=== PATIENT | female | born 1970 | race Hispanic/Latino ===

== ENCOUNTER 2017-08-11 09:25 | Emergency (ER) | payer BC, OTHER ==
[~2017-08-11] VITALS: Ht 167.6 cm; Wt 93.0 kg
[2017-08-11 09:52] LABS: BASOPHILS % (AUTO) 0.7 % (0.0-5.0); EOSINOPHILS % (AUTO) 3.3 % (0.0-8.0); HEMATOCRIT 27.8 % (36-48); LYMPHOCYTES % (AUTO) 27.1 % (21.0-51.0); MEAN CORPUSCULAR HEMOGLOBIN 25.7 pg (27.0-33.0); MEAN CORPUSCULAR HGB CONC 32.1 g/dL (32.0-36.0); MEAN CORPUSCULAR VOLUME 79.9 fL (79-99); MONOCYTES % (AUTO) 6.4 % (3.0-13.0); NEUTROPHILS % (AUTO) 62.5 % (40.0-77.0); PLATELET COUNT (AUTO) 315 K/uL (130-400); RED BLOOD CELL COUNT(AUTO) 3.48 MIL/uL (4.00-5.50); RED CELL DISTRIBUTION WIDTH 14.9 % (11.0-15.5); WHITE BLOOD COUNT (AUTO) 6.6 K/uL (4.8-10.8)
[2017-08-11 09:56] LABS: APPEARANCE,URINE Clear (CLEAR); BILIRUBIN,URINE Negative (NEGATIVE); COLOR,URINE Yellow (YELLOW); GLUCOSE, URINE (UA) Negative (NEGATIVE); KETONES,URINE Negative (NEGATIVE); LEUKOCYTE ESTERASE ,URINE Negative (NEGATIVE); NITRATE,URINE Negative (NEGATIVE); OCCULT BLOOD,URINE Negative (NEGATIVE); PH,URINE 5.5 (5.0-8.0); PROTEIN,URINE Negative (NEGATIVE)
[2017-08-11 09:58] LABS: HCG,QUAL RESULT NEGATIVE (NEGATIVE)
[2017-08-11 09:59] LABS: CREATININE 0.8 mg/dL (0.5-1.5); POTASSIUM 3.8 mmol/L (3.5-5.1)
[2017-08-11] MEDS ORDERED: KETOROLAC TROMETHAMINE 30MG/ML ONE (10:24)
[2017-08-11] MEDS ORDERED: ONDANSETRON HCL 4 MG/2 ML VIAL ONE (10:24)
[2017-08-11] MEDS ORDERED: SODIUM CHLORIDE 0.9% 1000ML 1,000 ML IV ONE (10:25)
[2017-08-11] MEDS ORDERED: ESTROGENS,CONJUGATED 25 MG/VIAL IVP SCH (11:31)
== END 2017-08-11 12:31 | disposition home or self-care (01) ==
LOC: EDH 09:25
DX: D64.9 Anemia, unspecified (principal); N93.9 Abnormal uterine and vaginal bleeding, unspecified; Z98.890 Other specified postprocedural states
CPT/HCPCS: 36415; 76830; 80048; 81003; 81025; 85025; 96361; 96374; 96375; 99285; J1410; J2405; J1885; J7030

== ENCOUNTER 2017-08-13 07:35 | Day surgery (SDC) | payer OTHER ==
[2017-08-12 16:28] VITALS: BP 134/79
[2017-08-12 16:44] LABS: BASOPHILS % (AUTO) 0.6 % (0.0-5.0); EOSINOPHILS % (AUTO) 2.6 % (0.0-8.0); HEMATOCRIT 25.3 % (36-48); LYMPHOCYTES % (AUTO) 29.3 % (21.0-51.0); MEAN CORPUSCULAR HGB CONC 34.1 g/dL (32.0-36.0); MEAN CORPUSCULAR VOLUME 79.1 fL (79-99); MONOCYTES % (AUTO) 6.9 % (3.0-13.0); NEUTROPHILS % (AUTO) 60.6 % (40.0-77.0); PLATELET COUNT (AUTO) 293 K/uL (130-400); RED CELL DISTRIBUTION WIDTH 14.6 % (11.0-15.5); WHITE BLOOD COUNT (AUTO) 8.1 K/uL (4.8-10.8)
[2017-08-13] VITALS (16 sets, daily range): BP systolic 95–127; BP diastolic 54–82
[~2017-08-13] VITALS: Ht 165.1 cm; Wt 99.3 kg
[2017-08-13] MEDS ORDERED: LACTATED RINGERS 1000ML 1,000 ML IV SCH (08:00)
[2017-08-13] MEDS ORDERED: ONDANSETRON HCL 4 MG/2 ML VIAL ONE (09:56)
[2017-08-13] MEDS ORDERED: FENTANYL CITRATE PF 50 MCG/1 ML 2ML VIAL ONE (09:57)
[2017-08-13] MEDS ORDERED: LIDOCAINE PF 2% 5ML ABBOJECT ONE (09:57)
[2017-08-13] MEDS ORDERED: DEXAMETHASONE SOD PHOSPHATE 10MG/ML 1ML VIAL ONE (09:57)
[2017-08-13] MEDS ORDERED: MIDAZOLAM HCL 1 MG/ML 2ML VIAL ONE (09:57)
[2017-08-13] MEDS ORDERED: PROPOFOL 10 MG/ML 20ML VIAL IV ONE (09:57)
[2017-08-13] MEDS ORDERED: MEPERIDINE-PF 50 MG/ML SYG ONE (11:09)
== END 2017-08-13 12:50 | disposition home or self-care (01) ==
LOC: SUH 07:35 → DAH 07:35 → SUH 12:50
PROVIDERS: ATTEND Specialist
DX: N85.8 Other specified noninflammatory disorders of uterus (principal); D64.9 Anemia, unspecified; Z80.41 Family history of malignant neoplasm of ovary; E66.9 Obesity, unspecified; Z98.890 Other specified postprocedural states
CPT/HCPCS: 36415; 58120; 84703; 85025; 86850; 86900; 86901; 88305; A4351; J1100; J2001; J2175; J2250; J2405; J2704; J3010; J7120

== ENCOUNTER 2025-04-11 17:10 | Emergency (ER) | payer BC, OTHER ==
[~2025-04-11] VITALS: Ht 167.6 cm; Wt 113.4 kg
--- NOTE | 2025-04-11 17:27 | ERN ---
General Chief Complaint: Headache Stated Complaint: LEFT FACIAL NUMBNESS, HEADACHE, RT LEG PAIN Time Seen by MD: 17:17 Time Seen by Midlevel: 17:17 Source: patient History of Present Illness Initial Comments 55-year-old female with a past medical history of PTSD on buspirone 5 mg presenting to the emergency department for evaluation of right-sided facial n umbness with associated right-sided facial pain. She reports a right-sided headache that has been intermittent in nature for one week. She was seen at [facility] earlier today where she was given Toradol and diagnosed with an acute headache. She saw her primary care doctor earlier this week for the same condition and was sent to the ER for a CT scan. Allergies: Coded Allergies: No Known Drug Allergies (Verified Allergy, Unknown, 08/11/17) codeine (Unverified Allergy, Unknown, 04/11/25) Home Meds No Active Prescriptions or Reported Meds Past Medical History Past Medical History: Anxiety Medical History Other: PTSD Past Surgical History: Hysterectomy ROS Dictation CONSTITUTIONAL: Negative except for HPI HEAD/FACE: Negative except for HPI EENT: Negative except for HPI RESPIRATORY: Negative except for HPI GASTROINTESTINAL/ABDOMINAL: Negative except for HPI GENITOURINARY: Negative except for HPI MUSCULOSKELETAL: Negative except for HPI INTEGUMENTARY: Negative except for HPI NEUROLOGICAL/PSYCH: Negative except for HPI HEMATOLOGIC/LYMPHATIC: Negative except for HPI All Systems Negative, Except as noted above. 13 point review of systems assessed and all negative except for above. Physical Exam Physical Exam Dictation Vital Signs reviewed General Appearance: Alert, oriented x 3, no acute distress, well developed, nourished. Head and Face: non-traumatic. Eyes: PERRL, pink conjunctivas, eyelid no trauma, anterior chamber with arcus senilis. Ears: Pinnas intact and no signs of trauma or erythema ear canals clear and no discharge TM no erythema Nose: No discharge, no bleeding. Oropharynx: Mouth normal, tongue pink, pharynx clear,no erythema, tonsils no exudates, no abscesses noted, mucous memb jenny moist Neck: Supple, non-tender, no thyromegaly, no masses, no JVD, no bruits Breast:Deferred Chest:No tenderness, no crepitus, no paradoxical movement, no retractions Lungs:Clear, well-ventilated, symmetric, no rales, no wheezing, no rhonchi, no s tridor, good breath sounds bilaterally Heart: Regular rate, regular rhythm, no murmur, no gallops Vascular: no peripheral edema, Abdomen: Soft, positive bowel sounds, nondistended, no guarding, nontender, no rebound, no masses no hepatomegaly, no splenomegaly, no La's sign, no hernias. Rectal: Deferred Genital: Deferred Neurological: Normal speech, motor function intact, sensory function intact Musculoskeletal: Neck nontender, full range of motion, back nontender, full range of motion, Extremities: nontender, full range of motion Skin: Color pink, dry, no turgor, no rash, no lacerations, no abrasions, no contusions. Lymphatic: Deferred Results Laboratory and Microbiology Lab and Micro Result Laboratory Tests Test 04/11/25 17:38 White Blood Count 6.2 K/uL (4.8-10.8) Red Blood Count 4.39 MIL/uL (4.00-5.50) Hemoglobin 13.0 g/dL (12.0-16.0) Hematocrit 39.8 % (36-48) Mean Corpuscular Volume 90.7 fL (79-99) Mean Corpuscular Hemoglobin 29.6 pg (27.0-33.0) Mean Corpuscular Hemoglobin Concent 32.7 g/dL (32.0-36.0) Red Cell Distribution Width 12.8 % (11.0-15.5) Platelet Count 237 K/uL (130-400) Mean Platelet Volume 10.8 fL (7.5-10.5) H Immature Granulocyte % (Auto) 0.6 % (0-1) Neutrophils (%) (Auto) 85.7 % (40.0-77.0) H Lymphocytes (%) (Auto) 12.3 % (21.0-51.0) L Monocytes (%) (Auto) 1.0 % (3.0-13.0) L Eosinophils (%) (Auto) 0.2 % (0.0-8.0) Basophils (%) (Auto) 0.2 % (0.0-5.0) Neutrophils # (Auto) 5.3 K/uL (1.8-7.7) Lymphocytes # (Auto) 0.8 K/uL (1.0-4.8) L Monocytes # (Auto) 0.1 K/uL (0.1-1.0) Eosinophils # (Auto) 0.01 K/uL (0.00-0.70) Basophils # (Auto) 0.01 K/uL (0.00-0.20) Absolute Immature Granulocyte (auto 0.04 K/uL (0-1) Nucleated Red Blood Cells 0.0 % (0.0-0.19) Sodium Level 141 mmol/L (136-145) Potassium Level 3.9 mmol/L (3.5-5.1) Chloride Level 108 mmol/L (101-111) Carbon Dioxide Level 22 mmol/L (21-32) Blood Urea Nitrogen 15 mg/dL (7-18) Creatinine 0.8 mg/dL (0.5-1.0) Glomerular Filtration Rate Calc 88 mL/min (>90) Random Glucose 134 mg/dL (70-105) H Total Calcium 8.7 mg/dL (8.5-10.1) Magnesium Level 1.80 mg/dL (1.80-2.40) Troponin I High Sensitivity < 4 ng/L (4-50) L Labs Reviewed?: Yes MDM MDM: 55-year-old female with a past medical history of PTSD on buspirone 5 mg presenting to the emergency department for evaluation of right-sided facial numbness with associated right-sided facial pain. She reports a right-sided headache that has been intermittent in nature for one week. She was seen at [facility] earlier today where she was given Toradol and diagnosed with an acute headache. She saw her primary care doctor earlier this week for the same condition and was sent to the ER for a CT scan. On physical examination patient is in no acute distress. NIH of 0. CBC shows no leukocytosis. No anemia, no thrombocytopenia. Chemistries are unremarkable. EKG shows no acute ischemic changes. CT scan of the head is normal. Patient does report being under a lot of stress in his working over 100 hours a week. She believes this may be contributing to her symptoms. Patient was given gabapentin in the emergency department will be discharged home. Patient needs to follow up outpatient with Neurology for further evaluation DIFFERENTIAL DIAGNOSIS: ICB, dehydration, electrolyte abnormality THERE ARE NO SOCIAL CONCERNS WITH THIS PATIENT. PRESCRIPTION DRUG MANAGEMENT PRESCRIPTIONS WILL INCLUDE:None MEDICAL MANAGEMENT AND EXAMINATION INTERPRETATION DISCUSSIONS WERE HAD BY ME WITH OTHER QUALIFIED HEALTHCARE PROFESSIONALS INDICATED FOR THE PATIENT'S CARE. ED Course Orders Procedure Category Date Status Time Cbc With Differential LAB 04/11/25 Complete 17:25 Basic Metabolic Panel LAB 04/11/25 Complete 17:25 Magnesium LAB 04/11/25 Complete 17:25 Troponin I High LAB 04/11/25 Complete Sensitivity 17:25 12 Lead Ekg Tracing- EKG 04/11/25 Complete Technical 17:25 Ct Head/Brain W/O CT 04/11/25 Resulted Contrast 17:25 Vital Signs Date Time Temp Pulse Resp B/P (MAP) Pulse Ox O2 Delivery O2 Flow Rate FiO2 04/11/25 17:16 98.1 96 16 148/86 96 Room Air 0 DX & DISP Disposition: Discharge Departure Impression: Primary Impression: Paresthesias Condition: Stable Scripts No Active Prescriptions or Reported Meds Additional Instructions: Your blood work today is unremarkable. Your electrolytes are normal. Your kidney function is normal. You are not anemic. There was no signs of systemic infection. Your EKG does not show any evidence of a heart attack or cardiac arrhythmia. Your CT scan of the head is normal. You were given one dose of gabapentin. This medication normally helps with n europathic pain. You will need to see a neurologist outpatient if your symptoms persist. Your symptoms may be related distress. Follow up with your primary care doctor in 2-3 days for repeat evaluation. Referrals: GALINDO PRINGLE (PCP) STEPHEN RUTH MD Time of Disposition: 19:31 I have reviewed the case, and I agree with, Diagnosis and Plan I performed the substantive portion of the visit. I have reviewed and personally made and approve the management plan that is documented in the note by myself or the HO. I acknowledge for responsibility for the patient's management plan. SUKH LOMAS Apr 11, 2025 17:27
--- NOTE | 2025-04-11 17:35 | EKG ---
[facility] Test Date: 2025-04-11 Test Time: 17:29:51 Pat Name: RATNA CAMPOS Department: ED Room: Gender: F Product Info Specialist: [id number] : 1970 Requested By: SUKH LOMAS Order Number: [id number] Reading MD: Sabrina Kincaid Measurements Intervals [place] Rate: 90 P: 43 HI: 145 QRS: -4 QRSD: 80 T: 27 QT: 366 QTc: 448 Interpretive Statements Sinus rhythm Low voltage, precordial leads No previous ECG available for comparison Electronically Signed On 04-12-2025 16:11:31 CDT by Sbarina Kincaid Please click the below link to view image of tracing.
[2025-04-11 17:45] LABS: IMMATURE GRANULOCYTE ABSOLUTE 0.04 K/uL (0-1); NUCLEATED RED BLOOD CELLS 0.0 % (0.0-0.19); PLATELET COUNT (AUTO) 237 K/uL (130-400); RED BLOOD CELL COUNT(AUTO) 4.39 MIL/uL (4.00-5.50); RED CELL DISTRIBUTION WIDTH 12.8 % (11.0-15.5); WHITE BLOOD COUNT (AUTO) 6.2 K/uL (4.8-10.8)
[2025-04-11 17:53] LABS: CREATININE 0.8 mg/dL (0.5-1.0); GLOMERULAR FILTR. RATE CALC 88.0 mL/min (>90); GLUCOSE,RANDOM 134.0 mg/dL (70-105); SODIUM SERUM 141.0 mmol/L (136-145); UREA NITROGEN, BLOOD 15.0 mg/dL (7-18)
--- NOTE | 2025-04-11 18:05 | HMCIMG ---
EXAM: CT Head Without IV contrast. CLINICAL HISTORY: numbness to right sided/headache TECHNIQUE: Axial computed tomography images of the head/brain without intravenous contrast. COMPARISON: None provided. FINDINGS: BRAIN: No evidence of acute hemorrhage. No mass lesion. No CT evidence for acute territorial infarct. No midline shift or extra-axial collections. VENTRICLES: No hydrocephalus. ORBITS: The orbits are unremarkable. SINUSES AND MASTOIDS: The paranasal sinuses and mastoid air cells are clear. BONES: No fracture. SOFT TISSUES: Unremarkable. IMPRESSION: No acute intracranial abnormality. /[place]
[2025-04-11 20:55] VITALS: BP 145/80; PULSE 90; RESP 16; TEMP 98.1; O2SAT 98
[2025-04-11] MEDS: GABAPENTIN 300 MG CAPSULE PO ONE (20:58)
== END 2025-04-11 21:11 | disposition home or self-care (01) ==
LOC: EDH 17:10
DX: R20.2 Paresthesia of skin (principal); F41.9 Anxiety disorder, unspecified; Z88.5 Allergy status to narcotic agent; Z90.710 Acquired absence of both cervix and uterus
CPT/HCPCS: 36415; 70450; 80048; 83735; 84484; 85025; 93005; 99284